=== PATIENT | female | born 1995 | race Two or more races ===

== ENCOUNTER 2022-05-02 21:47 | Emergency (ER) | payer MEDICAID ==
[~2022-05-02] VITALS: Ht 162.6 cm; Wt 81.6 kg
--- NOTE | 2022-05-02 22:16 | NUR ---
COVID ANTIGEN SWAB COLLECTED AND SENT TO LAB
--- NOTE | 2022-05-02 22:17 | NUR ---
[facility] AT PT'S BEDSIDE
--- NOTE | 2022-05-02 22:17 | NUR ---
URINE COLLECTED AND SENT TO LAB
[2022-05-02 22:42] LABS: BASOPHILS % (AUTO) 0.4 % (0.0-2.0); EOSINOPHILS % (AUTO) 0.3 % (0.0-6.0); HEMATOCRIT 40 % (33-45); HEMOGLOBIN 13.3 g/dL (11.5-14.8); LYMPHOCYTES # (AUTO) 1.6 K/uL (0.8-4.8); LYMPHOCYTES % (AUTO) 14.9 % (20.0-44.0); MEAN CORPUSCULAR HGB CONC 33 g/dl (31.0-36.0); MEAN CORPUSCULAR VOLUME 88 fL (82-100); MONOCYTES # (AUTO) 0.5 K/uL (0.1-1.30); MONOCYTES % (AUTO) 4.8 % (2.0-12.0); NEUTROPHILS # (AUTO) 8.5 K/uL (1.8-8.9); NEUTROPHILS % (AUTO) 79.6 % (43.0-81.0); PLATELET COUNT (AUTO) 308 K/uL (150-450); RED BLOOD CELL COUNT(AUTO) 4.56 MIL/uL (4.0-5.2); WHITE BLOOD COUNT (AUTO) 10.6 K/uL (4.3-11.0)
[2022-05-02 22:46] LABS: BILIRUBIN,URINE 1+ (NEGATIVE); COLOR,URINE YELLOW (YELLOW); LEUKOCYTE ESTERASE ,URINE TRACE (NEGATIVE); NITRITE, URINE NEGATIVE (NEGATIVE); PROTEIN,URINE TRACE mg/dl (NEGATIVE); UGLUCOSE NEGATIVE (NEGATIVE); UROBILINOGEN,URINE 0.2 EU/dL (0.2)
[2022-05-02 23:04] LABS: CALCIUM, SERUM 9.1 mg/dL (8.5-10.1); CARBON DIOXIDE 24 mmol/L (21-32); CHLORIDE 103 mmol/L (98-107); CREATININE 0.8 mg/dL (0.6-1.3); GLUCOSE 95 mg/dL (74-106); POTASSIUM 3.2 mmol/L (3.5-5.1); SODIUM SERUM 139 mmol/L (136-145); UREA NITROGEN, BLOOD 12 mg/dL (7-18)
[2022-05-02 23:05] LABS: BACTERIA,URINE Few /HPF (None Seen); MUCUS,URINE Moderate /LPF (None Seen); SQUAMOUS EPITHELIAL CELL,UR Moderate /HPF (None Seen)
[2022-05-02 23:08] LABS: ALANINE AMINOTRANSFERASE 24 U/L (12-78); ALBUMIN 4.4 g/dL (3.4-5.0); ALCOHOL, BLOOD < 3 mg/dL (0-0); ALKALINE PHOSPHATASE 69 U/L (46-116); ASPARTATE AMINOTRANSFERASE 18 U/L (15-37); BILIRUBIN,DIRECT 0.2 mg/dL (0.0-0.2); BILIRUBIN,TOTAL 0.6 mg/dL (0.2-1.0); TOTAL PROTEIN, SERUM 8.5 g/dL (6.4-8.2)
--- NOTE | 2022-05-02 23:14 | NUR ---
SEEN AND EVALUATED BY ART FROM CRISIS TEAM
[2022-05-02] MEDS ORDERED: CEPH500T PO (23:17)
--- NOTE | 2022-05-02 23:42 | NUR ---
Patient discharged to home in stable condition. Written and verbal after care instructions given. Patient verbalizes understanding of instruction.
[2022-05-02 23:43] VITALS: BP 119/79
== END 2022-05-02 23:44 | disposition home or self-care (01) ==
LOC: ER 21:58
DX: F32.9 Major depressive disorder, single episode, unspecified (principal); Z20.822 Contact with and (suspected) exposure to COVID-19
CPT/HCPCS: 99283; 85025; 80048; 80076; 84703; 81001; 36415; 87426; 80143; 80320; 80307; C9803; G0480